=== PATIENT | female | born 1975 | race Caucasian/White ===

== ENCOUNTER 2022-01-04 08:19 | Emergency (ER) | payer OTHER ==
[~2022-01-04] VITALS: Ht 170.2 cm; Wt 108.0 kg
[2022-01-04] MEDS ORDERED: TAMIFLU75 MG PO (09:06)
[2022-01-04] MEDS ORDERED: ONDANSETRON ODT4 MG PO (09:07)
[2022-01-04] MEDS ORDERED: ONDANSETRON HCL 4 MG ORAL DISINTEGRATING TAB PO ONE (09:15)
[2022-01-04] MEDS ORDERED: ONDANSETRON HCL 4 MG ORAL DISINTEGRATING TAB ONE (09:20)
== END 2022-01-04 09:13 | disposition home or self-care (01) ==
LOC: FSED 09:05
DX: R50.9 Fever, unspecified (principal); R05.9 Cough, unspecified; J10.1 Influenza due to other identified influenza virus with other respiratory manifestations; R10.11 Right upper quadrant pain; R51.9 Headache, unspecified
CPT/HCPCS: 87400; 99283; Q0162